=== PATIENT | female | born 1995 | race African-American/Black ===

== ENCOUNTER 2017-03-27 18:40 | Emergency (ER) | payer OTHER ==
[~2017-03-27] VITALS: Ht 157.5 cm; Wt 72.6 kg
[~2017-03-27 18:40] MED LIST: TRINATE TABLET1 TAB PO
[2017-03-27 19:06] LABS: URINE BILIRUBIN NEGATIVE (Negative); URINE BLOOD NEGATIVE (Negative); URINE COLOR YELLOW; URINE GLUCOSE-RANDOM* NEGATIVE (Negative); URINE KETONES NEGATIVE (Negative); URINE NITRITE NEGATIVE (Negative); URINE PROTEIN (DIPSTICK) NEGATIVE (Negative); URINE SPECIFIC GRAVITY >= 1.030 (1.003-1.035); URINE UROBILINOGEN 0.2 E.U./dl (0.2-1.0)
[2017-03-27 19:41] LABS: HEMATOCRIT 30.6 % (37.0-47.0); HEMOGLOBIN 9.6 gm/dL (12.0-15.0); MCH 20.5 pg (26.0-34.0); MCHC 31.5 g/dL (28.0-37.0); MCV 64.9 fL (80.0-100.0); PLATELET COUNT 270 thou/uL (150-400); RBC 4.71 mil/uL (4.20-5.00); RDW 19.1 % (10.5-14.5); WBC 12.3 thou/uL (4.0-11.0)
[2017-03-27 19:43] LABS: MANUAL DIFF YES
[2017-03-27 19:59] LABS: CALCIUM 8.5 mg/dL (8.5-10.1); CREATININE 0.6 mg/dL (0.6-1.0); POTASSIUM 3.6 mmol/L (3.5-5.1)
[2017-03-27 20:07] LABS: ABSOLUTE NEUTROPHILS 8.1 thou/uL (1.4-8.2); TOTAL CELL COUNT 100
[2017-03-27 20:08] LABS: ANISOCYTOSIS 1+; HYPOCHROMASIA 1+; MICROCYTES 1+
[2017-03-27] MEDS ORDERED: VITAFOL-OB+DHA1 EACH PO (20:42)
[2017-03-27 20:54] VITALS: BP 110/60
[2017-03-28 18:06] LABS: CHLAMYDIA TRACHOMATIS-PCR Negative (Negative); NEISSERIA GONORRHEA-PCR Negative (Negative)
== END 2017-03-27 21:01 | disposition home or self-care (01) ==
LOC: ER 18:40
PROVIDERS: Physician Assistant
DX: O26.891 Other specified pregnancy related conditions, first trimester (principal); N94.89 Other specified conditions associated with female genital organs and menstrual cycle; O99.011 Anemia complicating pregnancy, first trimester; Z3A.01 Less than 8 weeks gestation of pregnancy; Z88.1 Allergy status to other antibiotic agents